=== PATIENT | male | born 1950 | race Caucasian/White ===

== ENCOUNTER 2016-12-29 11:09 | Emergency (ER) | payer MEDICARE, BC ==
--- NOTE | 2016-12-29 11:44 | EDM.PDOC ---
ED HISTORY OF PRESENT ILLNESS - General Chief Complaint: Cardiovascular Problem Stated Complaint: LOW BP/BLURRED VISION/HEADACHE Time Seen by Provider: 12/29/16 11:25 Source: Reports: Patient, Family History Limitations: Reports: No limitations - History of Present Illness INITIAL COMMENTS - FREE TEXT/NARRATIVE: 66-year-old male who had some palpitations overnight, they seem to be resolved now but his pulse was 119 this morning which is high for him. He had a fluttering feeling in his upper chest which was similar to past episodes of atrial fibrillation. No significant chest pain or shortness of breath. Severity: mild Location, General: Reports: chest Quality: Reports: Pressure Associated Symptoms: Reports: other (Somewhat lightheaded and blurry vision). Denies: confusion - Related Data Allergies/ADRs: Allergies Allergy/AdvReac Type Severity Reaction Status Date / Time venom-honey bee Allergy Other Verified 10/18/16 07:28 [bee venom (honey bee)] Home Meds: Home Meds EPINEPHrine [Epipen 2-Abdulkadir] 0.3 ml SUBCUT ASDIRECTED PRN 09/23/13 [History] Terazosin HCl [Terazosin] 2 mg PO BEDTIME 09/23/13 [History] Lisinopril 10 mg PO BEDTIME 04/16/15 [History] Omeprazole Magnesium [Prilosec Otc] 40 mg PO DAILY 10/14/16 [History] Past Medical History HEENT History: Reports: Hard of hearing, Impaired vision Cardiovascular History: Reports: Afib, Hypertension Respiratory History: Reports: Other (see below) Other Respiratory History: emphysema Gastrointestinal History: Reports: GERD, Hiatal hernia, Other (see below) Other Gastrointestinal History: blood in stool Genitourinary History: Reports: BPH Musculoskeletal History: Reports: Arthritis, Back pain, chronic, Other (see below) Other Musculoskeletal History: fell 20 feet fx spine Neurological History: Reports: CVA Endocrine/Metabolic History: Reports: Obesity/BMI 30+ Hematologic History: Reports: Blood transfusion(s), Iron deficiency - Infectious Disease History Infectious Disease History: Reports: Chicken pox, Measles, Mumps - Past Surgical History HEENT Surgical History: Reports: Cataract surgery Cardiovascular Surgical History: Reports: None Respiratory Surgical History: Reports: None GI Surgical History: Reports: Colonoscopy, EGD, Hernia repair/other, Marquise fundoplication Male Surgical History: Reports: None Endocrine Surgical History: Reports: None Neurological Surgical History: Reports: Other (see below) Other Neurological Surgeries/Procedures: fractured vertebrae Musculoskeletal Surgical History: Reports: Shoulder surgery Social & Family History - Tobacco Use Smoking Status *Q: Never Smoker Years of Tobacco use: 10 Packs/Tins Daily: 1 Used Tobacco, but Quit: Yes Month Tobacco Last Used: Second Hand Smoke Exposure: No - Caffeine Use Caffeine Use: Reports: Coffee - Alcohol Use Days Per Week of Alcohol Use: 7 Number of Drinks Per Day: 3 Total Drinks Per Week: 21 - Recreational Drug Use Recreational Drug Use: No ED ROS GENERAL - Review of Systems Review Of Systems: See Below Constitutional: Reports: weakness. Denies: fever, chills HEENT: Reports: Vision change (Slightly blurred vision this morning, resolved) Respiratory: Denies: shortness of breath Cardiovascular: Reports: Chest pain (Mild upper chest pressure intermittently overnight) GI/Abdominal: Denies: Abdominal pain, Nausea, Vomiting : Reports: no symptoms Skin: Reports: no symptoms Neurological: Reports: dizziness. Denies: headache ED EXAM, GENERAL - Physical Exam Exam: See Below Exam Limited By: No limitations General Appearance: alert, no apparent distress Eye Exam: bilateral eye: other (Chronic disconjugate gaze, stable) Respiratory/Chest: no respiratory distress, lungs clear Cardiovascular: regular rate, rhythm, no murmur, extra beats (Patient has an occasional PAC on the monitor) GI/Abdominal: soft, non tender Extremities: normal inspection. No: pedal edema Neurological: alert, oriented Psychiatric: normal affect, normal mood EKG INTERPRETATION Rhythm: NSR QRS: LBBB Comparison: no change (No change from 2014) Course - Vital Signs Last Recorded V/S: Last Vital Signs Temp 98.2 F 12/29/16 11:22 Pulse 69 12/29/16 12:35 Resp 16 12/29/16 12:35 BP 114/59 L 12/29/16 12:35 Pulse Ox 97 12/29/16 12:35 - Orders/Labs/Meds Labs: Laboratory Tests 12/29/16 12/29/16 12/29/16 Range/Units 11:57 11:57 11:57 WBC 7.7 (4.5-11.0) K/uL RBC 4.76 (4.30-5.90) M/uL Hgb 14.1 (12.0-15.0) g/dL Hct 42.7 (40.0-54.0) % MCV 90 (80-98) fL MCH 30 (27-31) pg MCHC 33 (32-36) % Plt Count 242 (150-400) K/uL Neut % (Auto) 59 (36-66) % Lymph % (Auto) 28 (24-44) % Sac % (Auto) 11 H (2-6) % Eos % (Auto) 2 (2-4) % Baso % (Auto) 1 (0-1) % Sodium 143 (140-148) mmol/L Potassium 4.4 (3.6-5.2) mmol/L Chloride 108 (100-108) mmol/L Carbon Dioxide 30 (21-32) mmol/L Anion Gap 5.4 (5.0-14.0) mmol/L BUN 24 H D (7-18) mg/dL Creatinine 1.2 (0.8-1.3) mg/dL Est Cr Clr Drug Dosing 62.52 mL/min Estimated GFR (MDRD) > 60 (>60) Glucose 117 H (74-106) mg/dL Calcium 8.5 (8.5-10.1) mg/dL Troponin I < 0.017 (0.000-0.056) ng/mL - Re-Assessments/Exams Free Text/Narrative Re-Assessment/Exam: 12/29/16 12:00 Explained to the patient that he may have been in atrial fibrillation he is currently in a sinus rhythm with a normal pulse and blood pressure. EKG was done which was reassuring, stable from 2 years ago. A CBC and BMP along with troponin were obtained. 12/29/16 12:30 Patient was monitored for over one hour and maintained a normal sinus rhythm. CBC BMP and troponin were all reassuring. Patient was discharged and will return if symptoms recur, or consider a Holter monitor if they are waxing and waning. Departure - Departure Time of Disposition: 12:45 Disposition: Home, Self-Care 01 Condition: good Clinical Impression: Palpitations Chest pain Qualifiers: Chest pain type: unspecified Qualified Code(s): R07.9 - Chest pain, unspecified Instructions: Palpitations, [id number] Referrals: Ang Garcia MD [Primary Care Provider] - Forms: ED Department Discharge Care Plan Goals: Increase activity as tolerated, no medication changes. Return any time if you feel symptoms are recurring or you have other concerns.
[2016-12-29 12:36] VITALS: BP 114/59
== END 2016-12-29 12:44 | disposition home or self-care (01) ==
LOC: JP.ED 11:09
DX: R00.2 Palpitations (principal); R07.9 Chest pain, unspecified; I48.91 Unspecified atrial fibrillation; I10 Essential (primary) hypertension; K21.9 Gastro-esophageal reflux disease without esophagitis; E66.9 Obesity, unspecified; Z68.30 Body mass index [BMI] 30.0-30.9, adult; Z98.49 Cataract extraction status, unspecified eye; Z98.890 Other specified postprocedural states; Z79.899 Other long term (current) drug therapy; Z91.030 Bee allergy status
CPT/HCPCS: 36415; 80048; 84484; 85025; 93005; 93010; 99283; 99285-25

== ENCOUNTER 2023-08-16 05:48 | Day surgery (SDC) | payer MEDICARE ==
[2023-08-16] MEDS ORDERED: Dextrose 5%-Lactated Ringers 1,000 ML IV SCH (06:26)
[2023-08-16] MEDS ORDERED: fentaNYL 50 MCG/ML SDV ONE (07:08)
[2023-08-16] MEDS ORDERED: Propofol 200 MG/20 ML SDV ONE ×2 (07:08→08:14)
[2023-08-16 09:22] VITALS: BP 134/74; PULSE 52
== END 2023-08-16 09:51 | disposition home or self-care (01) ==
LOC: JP.SDS 05:48
PROVIDERS: ATTEND Surgery
DX: D12.0 Benign neoplasm of cecum (principal); K63.5 Polyp of colon; D64.9 Anemia, unspecified; K44.9 Diaphragmatic hernia without obstruction or gangrene; K57.30 Diverticulosis of large intestine without perforation or abscess without bleeding; K64.9 Unspecified hemorrhoids; I48.91 Unspecified atrial fibrillation; I10 Essential (primary) hypertension; J44.9 Chronic obstructive pulmonary disease, unspecified; H54.7 Unspecified visual loss; Z86.73 Personal history of transient ischemic attack (TIA), and cerebral infarction without residual deficits
CPT/HCPCS: 43235; 45385; J2704; J3010; J7121